=== PATIENT | male | born 1930 | race Caucasian/White ===

== ENCOUNTER 2016-10-27 20:39 | Inpatient (IN) | payer MEDICARE, BC ==
[~2016-10-27] VITALS: Ht 180.3 cm; Wt 67.1 kg
[2016-10-27 22:00] VITALS: BP 147/96
--- NOTE | 2016-10-27 22:15 | NUR ---
ADMITTING RN NOTE: ADMITTED THIS 86 Y/O MALE FROM [facility]. PATIENT IS ON 5150 HOLD FOR DTS, GD. PER HOLD PATIENT TOOK EXCEDRIN EXTRA STRENGTH PILLS WITH THE INTENT TO KILL HIMSELF BECAUSE OF CHRONIC PAIN. PATIENT VERBALIZE THAT HE WANTS TO . PATIENT HAS HISTORY OF DEPRESSION ON LEXAPRO 10MG DAILY, IMPAIRED JUDGEMENT AND UNABLE TO CARE FOR SELF. UPON FACE TO FACE ASSESSMENT. PT IS ALERT AND ORIENTED X2, CONFUSED, ANXIOUS, DISORGANIZED, DISORIENTED, FOCUS ON GOING HOME. V/S STABLE. NO SOB. RESPIRATION EVEN AND UNLABORED. NO ACUTE DISTRESS NOTED. SKIN/BODY ASSESSMENT DONE. NOTED LEFT LOWER LEG REDNESS, RIGHT LOWER LEG EXCORIATION, RIGHT HAND BRUISE, RIGHT ANKLE EXCORIATION, LEFT FOREARM DISCOLORATION, RIGHT FOREARM SKIN TEAR. WOUND CONSULT TRIGGERED. PATIENT IS UNDER DR. NOYOLA FOR PSYCH AND DR. SHRESTHA FOR MEDICAL CARE. CHECKED BELONGINGS FOR CONTRABAND. CONTRABAND PUT IN SAFE/LOCKED CABINET. BED IN LOW AND LOCKED POSITION. SIDERAILS UPX2. CALL LIGHT WITHIN REACH, WILL CONTINUE TO MONITOR FOR SAFETY AND BEHAVIOR [id number]. Addendum: 10/28/16 at 0434 by SUNNY BORJA RN PT IS UNDER DR. MCCLENDON FOR PSYCH AND DR. COTTON FOR MEDICAL.
[2016-10-27] MEDS ORDERED: MAG HYDROX/AL HYDROX/SIMETH 30 ML UDC PO PRN (22:30)
[2016-10-27] MEDS ORDERED: MAGNESIUM HYDROXIDE 30 ML UDC PO PRN (22:30)
[2016-10-27] MEDS ORDERED: clonazePAM 0.5 MG TABLET PO PRN (22:30)
[2016-10-27] MEDS ORDERED: TEMAZEPAM 7.5 MG CAPSULE PO PRN (22:30)
[2016-10-27] MEDS ORDERED: ACETAMINOPHEN 325 MG TABLET PO PRN (22:30)
[2016-10-27] MEDS ORDERED: ACETAMINOPHEN 325 MG TABLET ONE (23:00)
[2016-10-27] MEDS ORDERED: ATOR10TA PO (23:12)
[2016-10-27] MEDS ORDERED: TAMS-12 PO (23:12)
[2016-10-27] MEDS ORDERED: ASPI-605 PO (23:12)
[2016-10-27] MEDS ORDERED: DEXL60CA3 PO (23:12)
[2016-10-27] MEDS ORDERED: BUDE3CAP2 PO (23:12)
[2016-10-27] MEDS ORDERED: OMEG1CAP55 PO (23:12)
[2016-10-27] MEDS ORDERED: CHOL200026 PO (23:12)
[2016-10-27] MEDS ORDERED: ALLO300T2 PO (23:12)
[2016-10-27] MEDS ORDERED: ESCI10TA PO (23:12)
[2016-10-28 02:01] VITALS: BP 116/54
[2016-10-28 02:52] VITALS: BP 147/96
[2016-10-28 07:28] LABS: BASOPHILS % (AUTO) 0.4 % (0.0-2.0); EOSINOPHILS % (AUTO) 0.1 % (0.0-6.0); HEMATOCRIT 33 % (39-51); LYMPHOCYTES # (AUTO) 1.4 /CMM (0.8-4.8); LYMPHOCYTES % (AUTO) 18.9 % (20.0-44.0); MEAN CORPUSCULAR HEMOGLOBIN 32 PG (26.0-33.0); MEAN CORPUSCULAR HGB CONC 33 g/dl (31.0-36.0); MEAN CORPUSCULAR VOLUME 95 fL (80-96); MONOCYTES # (AUTO) 0.6 /CMM (0.1-1.30); MONOCYTES % (AUTO) 7.9 % (2.0-12.0); NEUTROPHILS # (AUTO) 5.3 /CMM (1.8-8.9); NEUTROPHILS % (AUTO) 72.7 % (43.0-81.0); PLATELET COUNT (AUTO) 317 /CMM (150-450); RDW COEFFICIENT OF VARIATION 14.6 (11.5-15.0); RED BLOOD CELL COUNT(AUTO) 3.49 MIL/uL (4.5-6.0); WHITE BLOOD COUNT (AUTO) 7.3 K/uL (4.3-11.0)
[2016-10-28 07:47] LABS: ALBUMIN 3.5 g/dL (3.4-5.0); BILIRUBIN,TOTAL 0.4 mg/dL (0.2-1.0); CALCIUM, SERUM 9.7 mg/dL (8.5-10.1); CREATININE 1.6 mg/dL (0.6-1.3); POTASSIUM 3.3 mmol/L (3.5-5.1); TOTAL PROTEIN, SERUM 7.6 g/dL (6.4-8.2)
[2016-10-28 08:00] VITALS: BP 143/76
[2016-10-28] MEDS: Z GUARD REMEDY 2 OZ OINT TP SCH (08:55)
[2016-10-28] MEDS ORDERED: POTASSIUM CHLORIDE 20 MEQ TAB.PRT.SR PO ONE (11:40)
[2016-10-28] MEDS ORDERED: HOME MED MISCELLANEOUS XX SCH (13:00)
[2016-10-28] MEDS: ARIPIPRAZOLE 2 MG TABLET PO SCH (13:05)
[2016-10-28] MEDS: ESCITALOPRAM OXALATE (10 MG) 10 MG TABLET PO SCH (13:05)
[2016-10-28] MEDS: CHOLECALCIFEROL 1,000 UNIT TABLET (VIT D3) PO SCH (14:36)
[2016-10-28] MEDS: ASPIRIN EC 81 MG TABLET.DR PO SCH (17:10)
--- NOTE | 2016-10-28 19:00 | NUR ---
GPS/RN NOTE: PATIENT SKIN ASSESSMENT DONE ON A LIMITED BASIS PER PATIENT, REFUSED SKIN ASSESSSMENT AND OPHOTO OF LOWER EXTREMITIES, STATED, " ENOUGH NOW."
[2016-10-28 20:14] VITALS: BP 129/69
[2016-10-28] MEDS: ATORVASTATIN 10 MG TABLET PO SCH (21:38)
[2016-10-29 07:22] LABS: CALCIUM, SERUM 9.2 mg/dL (8.5-10.1); CREATININE 1.4 mg/dL (0.6-1.3); MAGNESIUM 1.8 mg/dL (1.8-2.4); PHOSPHORUS 2.6 mg/dL (2.5-4.9); POTASSIUM 3.7 mmol/L (3.5-5.1)
[2016-10-29 08:00] VITALS: BP 144/69
[2016-10-29] MEDS: BUDESONIDE 3 MG CAP.SR.24H PO SCH (09:00)
[2016-10-29] MEDS: TAMSULOSIN 0.4 MG CAP.SR.24H PO SCH (11:03)
[2016-10-29] MEDS: ASPIRIN EC 81 MG TABLET.DR PO SCH ×2 (11:03→18:02)
[2016-10-29] MEDS: ARIPIPRAZOLE 2 MG TABLET PO SCH (11:03)
[2016-10-29] MEDS: PANTOPRAZOLE 40 MG TABLET.DR PO SCH (11:04)
[2016-10-29] MEDS: ALLOPURINOL 100 MG TABLET PO SCH (11:04)
[2016-10-29] MEDS: ESCITALOPRAM OXALATE (10 MG) 10 MG TABLET PO SCH (11:04)
[2016-10-29] MEDS: CHOLECALCIFEROL 1,000 UNIT TABLET (VIT D3) PO SCH (11:04)
[2016-10-29] MEDS: Z GUARD REMEDY 2 OZ OINT TP SCH (11:05)
--- NOTE | 2016-10-29 11:31 | NUR ---
WOUND CARE CONSULT: PATIENT SEEN AND SKIN ASSESSMENT DONE. PATIENT ALERT, AMBULATORY, INDEPENDENT WITH BED MOBILITY, BLAYNE 21, CONTINENT. SEE TODAY'S SKIN ASSESSMENT IN PCS ALONG WITH RECOMMENDATIONS. RECOMMEND MOISTURE PROTECTION WITH Z GUARD PRN ORDERED. ALL DISCUSSED WITH NURSING STAFF. MD IN AGREEMENT WITH PLAN OF CARE. Addendum: 10/29/16 at 1133 by MANDY DONOVAN WNDNU Amended: Links added.
[2016-10-29 16:00] VITALS: BP 129/54
--- NOTE | 2016-10-29 16:53 | NUR ---
Initial discharge plan: Pt. resides with his , Libby Leblanc [phone] [place] [phone] [address] [place] [address] and would like to return upon discharge. PHILOMENA will work with MD, family, and pt and will help form safe and proper discharge.
[2016-10-29] MEDS: NEOMY SULF/BACITRAC ZN/POLY 15 GM TUBE TP SCH (18:04)
[2016-10-29 20:00] VITALS: BP 121/64
[2016-10-29] MEDS: MUPIROCIN OINT 2% 22 GM TUBE SCH (20:32)
[2016-10-29] MEDS: ATORVASTATIN 10 MG TABLET PO SCH (21:38)
[2016-10-30 08:00] VITALS: BP 147/79
[2016-10-30] MEDS: ARIPIPRAZOLE 2 MG TABLET PO SCH (08:20)
[2016-10-30] MEDS: MUPIROCIN OINT 2% 22 GM TUBE SCH (08:20)
[2016-10-30] MEDS: TAMSULOSIN 0.4 MG CAP.SR.24H PO SCH (08:20)
[2016-10-30] MEDS: PANTOPRAZOLE 40 MG TABLET.DR PO SCH (08:20)
[2016-10-30] MEDS: ESCITALOPRAM OXALATE (10 MG) 10 MG TABLET PO SCH (08:20)
[2016-10-30] MEDS: CHOLECALCIFEROL 1,000 UNIT TABLET (VIT D3) PO SCH (08:20)
[2016-10-30] MEDS: ASPIRIN EC 81 MG TABLET.DR PO SCH (08:20)
[2016-10-30] MEDS: ALLOPURINOL 100 MG TABLET PO SCH (08:20)
[2016-10-30] MEDS: NEOMY SULF/BACITRAC ZN/POLY 15 GM TUBE TP SCH (08:23)
[2016-10-30] MEDS: BUDESONIDE 3 MG CAP.SR.24H PO SCH (08:38)
[2016-10-30 09:27] LABS: BASOPHILS % (AUTO) 0.6 % (0.0-2.0); EOSINOPHILS # (AUTO) 0.1 /CMM (0.0-0.7); EOSINOPHILS % (AUTO) 1.7 % (0.0-6.0); HEMATOCRIT 32 % (39-51); HEMOGLOBIN 10.2 g/dL (13.5-17.5); LYMPHOCYTES # (AUTO) 1.6 /CMM (0.8-4.8); LYMPHOCYTES % (AUTO) 24.2 % (20.0-44.0); MEAN CORPUSCULAR HEMOGLOBIN 31 PG (26.0-33.0); MEAN CORPUSCULAR HGB CONC 32 g/dl (31.0-36.0); MEAN CORPUSCULAR VOLUME 96 fL (80-96); MONOCYTES # (AUTO) 0.6 /CMM (0.1-1.30); MONOCYTES % (AUTO) 8.9 % (2.0-12.0); NEUTROPHILS # (AUTO) 4.3 /CMM (1.8-8.9); NEUTROPHILS % (AUTO) 64.6 % (43.0-81.0); PLATELET COUNT (AUTO) 243 /CMM (150-450); RED BLOOD CELL COUNT(AUTO) 3.29 MIL/uL (4.5-6.0); WHITE BLOOD COUNT (AUTO) 6.7 K/uL (4.3-11.0)
[2016-10-30 09:45] LABS: CALCIUM, SERUM 9.2 mg/dL (8.5-10.1); CREATININE 1.6 mg/dL (0.6-1.3); PHOSPHORUS 2.4 mg/dL (2.5-4.9); POTASSIUM 4.3 mmol/L (3.5-5.1)
[2016-10-30] MEDS: Z GUARD REMEDY 2 OZ OINT TP SCH (09:45)
--- NOTE | 2016-10-30 10:00 | NUR ---
RN-CO: DR MCCLENDON SEEN AND EXAMINED PATIENT TODAY. ORDERED TO DISCONTINUE HOLD AND DISCHARGE PATIENT HOME WITH DAUGHTER SOCRATES.PT REMAINED CALM AND COOPERATIVE. HAS APPROPRIATE AFFECT, DENIED SI/HI. DENIED HI/VH.
[2016-10-30] MEDS ORDERED: K PHOS NEUTRAL 250 MG TABLET PO ONE (13:30)
--- NOTE | 2016-10-30 14:06 | NUR ---
Discharge note: Pt. will be discharged back home with his , Libby Leblanc [phone] or [phone] [place] [address] [place] [address] . Pt's spoke with MD and it was decided that he will be discharged today. Pt's daughter in law, Libby [phone] will cigar packer and picker the patient at 4:00PM. Pt. agrees with the discharge plan and denies having suicidal/homicidal ideations. Pt. is calm and cooperative. Discharge instructions will be provided to the patient and discharge paperwork will be signed prior to cigar packer and picker.
[2016-10-30 16:00] VITALS: BP 147/85
--- NOTE | 2016-10-30 17:38 | NUR ---
gps/rn Patient cleared for discharge home by Dr Golden and [facility], medications reconciled, prescriptions and d/c packet explained to daughter in-law Libby Leblanc, verbalized understanding, belongings returned and signed for, Patient denies SI/HI upon discharge, left unit calm, cooperative, no distress with daughter in-law and BOLT HEADER at side. Addendum: 10/30/16 at 1076 by ROSA CARDENAS RN discharged at 1640
[2016-10-31] MEDS ORDERED: ESCITALOPRAM OXALATE (10 MG) 10 MG TABLET PO SCH (09:00)
== END 2016-10-30 16:40 | disposition home or self-care (01) | DRG 885 ==
LOC: GPS 21:51
PROVIDERS: ADMIT Psychiatry & Neurology Psychiatry; ATTEND Family Medicine
DX: F33.3 Major depressive disorder, recurrent, severe with psychotic symptoms (principal); N17.9 Acute kidney failure, unspecified; N18.9 Chronic kidney disease, unspecified; G93.40 Encephalopathy, unspecified; F29 Unspecified psychosis not due to a substance or known physiological condition; D63.8 Anemia in other chronic diseases classified elsewhere; E78.5 Hyperlipidemia, unspecified; E87.6 Hypokalemia; G89.29 Other chronic pain; J44.9 Chronic obstructive pulmonary disease, unspecified; M10.9 Gout, unspecified; N40.0 Benign prostatic hyperplasia without lower urinary tract symptoms; Z91.5 Personal history of self-harm; T14.91 Suicide attempt
CPT/HCPCS: 36415; 80048-TC; 80053-TC; 80061-TC; 83735-TC; 84100-TC; 85025-TC; 87081-TC; 97001-TC; 97116-TC; 97530-TC